=== PATIENT | male | born 1960 | race Caucasian/White ===

== ENCOUNTER 2024-03-12 10:17 | Emergency (ER) | payer OTHER, SELFPAY ==
[2024-03-12 10:20] VITALS: BP 136/87
--- NOTE | 2024-03-12 10:49 | ED.GENMED ---
History of Present Illness
General
Chief Complaint: Weakness
Time Seen by Provider: 03/12/24 10:32
History of Present Illness
History of Present Illness:
63-year-old male presents to the emergency department for evaluation of generalized weakness and fatigue beginning yesterday, symptoms of gradually worsening since that time. He reports general myalgias as well, no tactile fevers or night sweats.
Denies any URI symptoms, coughing, shortness of breath, or chest pain. States that he feels somewhat unsteady when walking. Denies any new medications. Has no known past medical history however does not seek routine medical care. Former smoker
quit 1 year ago. No recent nausea, vomiting, or diarrhea. No ill contacts. Denies any headaches or vision changes.
He admits to homelessness
Past History
Past History
ED Past Medical History: None
ED Past Surgical History: None
Social History
Employment: Employed
Review of Systems
Review of Systems
Allergies reviewed?: Yes
All Other Systems: ROS reviewed and negative except as documented in HPI and ROS
Phy Exam
Physical Exam
Physical Exam:
GEN: Well appearing, NAD, WDWN
HEENT: Oral mucosa moist, no scleral icterus, no nasal congestion
Cardiac: Regular rate and rhythm, no murmurs
Lung: No respiratory distress, no tachypnea, lungs clear to auscultation bilaterally
MSK: No gross deformity or injuries
Skin: Good color, no pallor or jaundice, no rashes
Neuro: AO x3; CN II-XII grossly intact. BUE strength 5/5 in all patrick, sensation intact and symmetric. BLE strength 5/5 in all patrick, sensation intact and symmetric. Gait is steady without ataxia or obvious deficit/weakness
Psych: Calm, cooperative
Course
Orders/Labs/Results
Orders:
Orders
03/12/24 10:46
Electrocardiogram (*1) Urgent
Reason for Study: QTc Monitoring
EKG- Treatment ONCE
03/12/24 10:58
COVID-19 Antigen Urgent
Source: Nasal Swab
Complete Blood Count/With Diff Urgent
Comprehensive Metabolic Panel Urgent
TSH Reflex To Free T4 Urgent
03/12/24 12:34
Urinalysis Reflex To Culture Urgent
Date Specimen was Collected: 03/12/24
Time Specimen was Collected: 12:27
Abnormal Lab Results
03/12/24
10:58
MCHC 32.7 L g/dL
(33.0-37.0)
MPV 11.0 H fL
(7.4-10.4)
BUN 24 H mg/dl
(9-20)
03/12/24 10:58
03/12/24 10:58
Vital Signs
Initial and Last Documented VS:
Initial Vital Signs
Temp Pulse Resp BP Pulse Ox
98.2 F 77 17 136/87 98
03/12/24 10:20 03/12/24 10:20 03/12/24 10:20 03/12/24 10:20 03/12/24 10:20
Last Documented Vital Signs
Temp Pulse Resp BP Pulse Ox
98.2 F 60 14 131/86 98
03/12/24 10:20 03/12/24 13:00 03/12/24 13:00 03/12/24 12:00 03/12/24 10:20
MDM/Problems Addressed
MDM/Problems Addressed:
Pt's workup is unrevealing of pathology. Suspect homelessness contributing factor to ED visit today. Pt given nutrition and hydration. D/C in stable condition
*Critical Care Note
Total Time (30-74mins, 75-104mins- exclusive of procedures): Not Applicable
ED Attending Note
-
Portions of this chart may have been created with voice recognition software.� Occasional wrong word or��sound alike� substitutions may have occurred due to the inherent limitations of voice recognition software.
Discharge Plan
Departure
Patient Disposition: Home (Routine Discharge)
Date of Disposition: 03/12/24
Time of Disposition: 13:22
Patient with high blood pressure during this ER visit?: No
Discharge Problem:
Fatigue, Homelessness
Instructions: Fatigue ED
Prescriptions:
No Action
No Current Medications
0
Referrals:
NONE,* [Family Provider] -
Interventions
Interventions:
*Risk Screen - Suicide Last Done: 03/12/24 10:26
*General Assessment Last Done: 03/12/24 10:26
*Neglect/Abuse Screening Last Done: 03/12/24 10:26
*Nursing Disposition Last Done: 03/12/24 13:31
ED- Cardiac Assessment Last Done: 03/12/24 11:06
ED- Neurological Assessment Last Done: 03/12/24 11:06
ED- Pulmonary Assessment Last Done: 03/12/24 11:06
Discharge Date and Time
Discharge Date/Time: 03/12/24 13:33
Print Language: ANDORRAN
[2024-03-12 10:58] VITALS: BP 145/89
[2024-03-12 11:03] VITALS: BP 141/82
[2024-03-12 11:19] LABS: % Basophils 0.4 % (0-2); % Eosinophils 1.5 % (0-6); % Immature Granulocytes 0.1 % (0-0.5); % Lymphocytes 24.2 % (20.5-51.1); % Monocytes 6.9 % (1.7-9.3); % Neutrophils 66.9 % (42.2-75.2); Absolute Eosinophils 0.1 10^3/uL (0-0.7); Absolute Lymphocytes 1.6 10^3/uL (1.2-3.4); Absolute Monocytes 0.5 10^3/uL (0.1-0.6); Absolute Neutrophils 4.5 10^3/uL (1.4-6.5); Hematocrit 44.4 % (39.0-52.0); Hemoglobin 14.5 g/dL (13.0-18.0); Mean Corp Hgb Conc. 32.7 g/dL (33.0-37.0); Mean Corpuscular Hgb 30.3 pg (27.0-31.0); Mean Corpuscular Volume 92.9 fL (80.0-94.0); Nucleated Red Blood Cells % 0 % (-); Platelet Count 205 10^3/uL (130-400); Red Blood Cell Count 4.78 10^6/uL (4.70-6.10); Red Cell Dist. Width 12.2 % (11.5-14.5); White Blood Cell Count 6.8 10^3/uL (4.8-10.8)
[2024-03-12 11:27] LABS: COVID-19 Antigen Negative (Negative)
[2024-03-12 11:31] LABS: ALT (SGPT) 23 U/L (0-50); AST (SGOT) 27 U/L (17-59); Albumin 4.3 g/dl (3.5-5.0); Alkaline Phosphatase 62 U/L (38-126); Blood Urea Nitrogen 24 mg/dl (9-20); Calcium 9.3 mg/dl (8.4-10.2); Carbon Dioxide 29 mmol/L (22-30); Chloride 102 mmol/L (98-107); Glucose 86 mg/dl (70-99); Potassium 4.2 mmol/L (3.5-5.1); Sodium 139 mmol/L (135-145); Total Bilirubin 0.4 mg/dl (0.2-1.3); Total Protein 6.8 g/dl (6.3-8.2); eGFR > 60.00
[2024-03-12 12:00] VITALS: BP 131/86
[2024-03-12 12:00] LABS: TSH Reflex To Free T4 0.67 uIU/ml (0.47-4.68)
[2024-03-12 12:56] LABS: Urine Albumin Negative (Neg - Trace); Urine Bilirubin Negative (Negative); Urine Character Very Cloudy (Clear); Urine Color Yellow; Urine Glucose Negative (Negative); Urine Ketone Negative (Negative); Urine Leukocyte Negative (Negative); Urine Nitrite Negative (Negative); Urine Occult Blood Negative (Negative); Urine Urobilinogen Negative (Neg - 1+)
== END 2024-03-12 13:33 | disposition home or self-care (01) ==
LOC: EMR 10:17
PROVIDERS: Physician Assistant; EMERGENCY PHYSICIAN Emergency Medicine
DX: R53.83 Other fatigue (principal); Z59.00 Homelessness unspecified; Z87.891 Personal history of nicotine dependence; Z11.52 Encounter for screening for COVID-19
CPT/HCPCS: 99284; 80053; 81003; 84443; 85025; 87811; 93005

== ENCOUNTER 2024-03-23 13:57 | Emergency (ER) | payer OTHER, SELFPAY ==
[2024-03-23 13:57] VITALS: BP 124/72
[2024-03-23 13:59] VITALS: BP 116/82
--- NOTE | 2024-03-23 14:18 | ED.GENMED ---
History of Present Illness
General
Chief Complaint: Cold/Flu/URI Symptoms
Source: patient
Exam Limitations: none
Time Seen by Provider: 03/23/24 14:18
Nursing documentation reviewed up to this point in time: agreed with
History of Present Illness
History of Present Illness:
63-year-old male with a past medical history of tobacco use disorder, social history of homelessness presenting to the emergency department today with concerns of nasal congestion, coughing, and generalized malaise. Patient reports that he was
riding [employer] buses recently and feels that he may have picked up an illness such as COVID or the flu. Patient reports that he tried a congestion medication from his friend yesterday which seemed to improve his symptoms a bit but they quickly
returned this morning. Patient also notes body aches and mild headaches. Patient notes some mild shortness of breath but no chest pain, abdominal pain, nausea, vomiting, dizziness, lightheadedness, fevers, or chills. Patient denies hemoptysis.
Past History
Past History
ED Past Medical History: None
ED Past Surgical History: None
Social History
Employment: Employed
Review of Systems
Review of Systems
All Other Systems: ROS reviewed and negative except as documented in HPI and ROS
Phy Exam
Physical Exam
Physical Exam:
General: Patient is well appearing and in no acute distress; non-toxic
Skin: Warm and dry, no rashes or lesions
Head: Normocephalic, atraumatic
Eyes: Sclera non-icteric. EOMs intact. PERRLA.
Mouth: No intraoral lesions, no pharyngeal erythema.
Cardiac: Regular rate and rhythm, no murmurs.
Peripheral Vascular: No lower extremity swelling or edema.
Pulm: Normal respiratory effort, equal breath sounds bilaterally, no wheezes, rales, or rhonchi
Neuro: CN II-XII intact, no focal neurologic deficits.
Psychiatric: Appropriate mood and affect.
Course
Orders/Labs/Results
Orders:
Orders
03/23/24 14:30
Ibuprofen [Motrin] 600 mg PO NOW STA
CR Chest - 2 Views Urgent
Comment:
Reason For Exam: shortness of breath
03/23/24 14:46
COVID-19 Antigen Urgent
Source: Nasal Swab
Complete Blood Count/With Diff Urgent
Comprehensive Metabolic Panel Urgent
Influenza A+B Rapid Molecular Urgent
KEVIN Source: Nasal Swab
Specimen Description:
Abnormal Lab Results
03/23/24
14:46
RBC 4.57 L 10^6/uL
(4.70-6.10)
MCH 31.7 H pg
(27.0-31.0)
MPV 10.7 H fL
(7.4-10.4)
Absolute Lymphs (auto) 1.1 L 10^3/uL
(1.2-3.4)
Neutrophils % 78.5 H %
(42.2-75.2)
Lymphocytes % 13.8 L %
(20.5-51.1)
Glucose 101 H mg/dl
(70-99)
03/23/24 14:46
03/23/24 14:46
Vital Signs
Initial and Last Documented VS:
Initial Vital Signs
Pulse Resp BP Pulse Ox
83 20 124/72 98
03/23/24 13:57 03/23/24 13:57 03/23/24 13:57 03/23/24 13:57
Last Documented Vital Signs
Temp Pulse Resp BP Pulse Ox
98.2 F 83 20 124/72 98
03/23/24 13:59 03/23/24 16:09 03/23/24 16:09 03/23/24 16:09 03/23/24 16:09
MDM/Problems Addressed
Differential Diagnosis Includes:
ddx include upper respiratory tract infection, sinusitis, allergic rhinitis, pneumonia
MDM/Problems Addressed:
Nasal congestion, body aches:
63-year-old male with a past medical history of tobacco use disorder, social history of homelessness presenting to the emergency department today with concerns of nasal congestion, coughing, and generalized malaise. Patient states that he is
regarding the past as recently as concerned he may have picked up a respiratory illness such as COVID. Emergency department, he is well-appearing but does appear fatigued. His vitals are stable, he is afebrile. His CBC and CMP is unremarkable.
His COVID and flu testing is negative. His x-ray shows no evidence of pneumothorax or pneumonia. Patient's likely suffering from a viral syndrome, I discussed [id number] medications with patient to help with symptom control. Patient states
that he will try this and he is in agreement with plan. Patient stable for discharge.
Chronic conditions affecting care:
n/a
Acute Exacerbation and/or Progression of Chronic Illness:
n/a
*Radiology
Radiology exam reviewed: preliminary read by ED provider (no acute cardiopulmonary abnormality )
*Pulse Oximetry
Patient hypoxic: no
*Critical Care Note
Total Time (30-74mins, 75-104mins- exclusive of procedures): Not Applicable
Data Reviewed
Review of Other/Old Records Reveals: Records (Reviewed ER physician documentation from 03/12/2024 patient was seen for similar symptoms, reviewed your physician-patient from 09/25/23)
Source: patient and records
Patient Management
Social determinants of health affecting care: Living situation and Poor outpatient follow-up
Escalation/DeEscalation of care consider admission/obs:
Reviewed case with my attending Dr. Valentin. Patient stable for discharge.
ED Attending Note
-
Portions of this chart may have been created with voice recognition software.� Occasional wrong word or��sound alike� substitutions may have occurred due to the inherent limitations of voice recognition software.
Discharge Plan
Departure
Patient Disposition: Home (Routine Discharge)
Date of Disposition: 03/23/24
Time of Disposition: 15:52
Patient with high blood pressure during this ER visit?: Yes
Condition: Good
Discharge Problem:
Viral syndrome, Head congestion
Instructions: Viral Upper Respiratory Infection, Adult (DC), Viral Syndrome (DC)
Prescriptions:
No Action
No Current Medications
0
Referrals:
NONE,* [Family Provider] -
Activity Restrictions/Additional Instructions:
You can black pickler Sudafed [id number] to help with your symptoms. You can take one immediate release 60 mg tablet every 4-6 hours as needed.
Please return to the emergency department should you develop chest pain, abdominal pain, palpitations, an acute worsening of your symptoms, dizziness, lightheadedness, fainting spells, or any other signs or symptoms concerning to you.
Interventions
Interventions:
*Risk Screen - Suicide Last Done: 03/23/24 13:59
*General Assessment Last Done: 03/23/24 13:59
*Neglect/Abuse Screening Last Done: 03/23/24 13:59
*Nursing Disposition Last Done: 03/23/24 16:09
ED- Pulmonary Assessment Last Done: 03/23/24 14:50
Discharge Date and Time
Discharge Date/Time: 03/23/24 16:10
Print Language: CITIZEN OF [place]
[2024-03-23] MEDS: MOTRIN 600 MG PO (14:38)
[2024-03-23 14:59] LABS: % Basophils 0.5 % (0-2); % Immature Granulocytes 0.4 % (0-0.5); % Lymphocytes 13.8 % (20.5-51.1); % Monocytes 5.8 % (1.7-9.3); % Neutrophils 78.5 % (42.2-75.2); Absolute Eosinophils 0.1 10^3/uL (0-0.7); Absolute Lymphocytes 1.1 10^3/uL (1.2-3.4); Absolute Monocytes 0.5 10^3/uL (0.1-0.6); Absolute Neutrophils 6.1 10^3/uL (1.4-6.5); Hematocrit 41.5 % (39.0-52.0); Hemoglobin 14.5 g/dL (13.0-18.0); Mean Corp Hgb Conc. 34.9 g/dL (33.0-37.0); Mean Corpuscular Hgb 31.7 pg (27.0-31.0); Mean Corpuscular Volume 90.8 fL (80.0-94.0); Mean Platelet Volume 10.7 fL (7.4-10.4); Nucleated Red Blood Cells % 0 % (-); Platelet Count 180 10^3/uL (130-400); Red Blood Cell Count 4.57 10^6/uL (4.70-6.10); Red Cell Dist. Width 12.7 % (11.5-14.5); White Blood Cell Count 7.7 10^3/uL (4.8-10.8)
[2024-03-23 15:05] LABS: ALT (SGPT) 17 U/L (0-50); AST (SGOT) 22 U/L (17-59); Albumin 4.1 g/dl (3.5-5.0); Alkaline Phosphatase 60 U/L (38-126); Blood Urea Nitrogen 13 mg/dl (9-20); Calcium 8.7 mg/dl (8.4-10.2); Carbon Dioxide 29 mmol/L (22-30); Chloride 101 mmol/L (98-107); Glucose 101 mg/dl (70-99); Potassium 4.5 mmol/L (3.5-5.1); Sodium 136 mmol/L (135-145); Total Bilirubin 0.7 mg/dl (0.2-1.3); Total Protein 6.7 g/dl (6.3-8.2); eGFR > 60.00
[2024-03-23 15:10] LABS: COVID-19 Antigen Negative (Negative)
[2024-03-23 16:09] VITALS: BP 124/72
== END 2024-03-23 16:10 | disposition home or self-care (01) ==
LOC: EMR 13:57
PROVIDERS: Physician Assistant; EMERGENCY PHYSICIAN Emergency Medicine
DX: B34.9 Viral infection, unspecified (principal); R09.81 Nasal congestion; Z87.891 Personal history of nicotine dependence
CPT/HCPCS: 99283; 71046; 80053; 85025; 87502; 87811

== ENCOUNTER 2024-04-20 11:10 | Emergency (ER) | payer OTHER, SELFPAY ==
[2024-04-20 11:15] VITALS: BP 120/82
[2024-04-20 11:32] LABS: % Basophils 0.8 % (0-2); % Immature Granulocytes 0.4 % (0-0.5); % Lymphocytes 29.2 % (20.5-51.1); % Monocytes 8.3 % (1.7-9.3); % Neutrophils 59.3 % (42.2-75.2); Absolute Basophils 0.1 10^3/uL (0-0.2); Absolute Eosinophils 0.1 10^3/uL (0-0.7); Absolute Lymphocytes 2.1 10^3/uL (1.2-3.4); Absolute Monocytes 0.6 10^3/uL (0.1-0.6); Absolute Neutrophils 4.2 10^3/uL (1.4-6.5); Hematocrit 44.5 % (39.0-52.0); Hemoglobin 15.5 g/dL (13.0-18.0); Mean Corp Hgb Conc. 34.8 g/dL (33.0-37.0); Mean Corpuscular Hgb 31.7 pg (27.0-31.0); Mean Platelet Volume 10.8 fL (7.4-10.4); Nucleated Red Blood Cells % 0 % (-); Platelet Count 204 10^3/uL (130-400); Red Blood Cell Count 4.89 10^6/uL (4.70-6.10); Red Cell Dist. Width 12.5 % (11.5-14.5); White Blood Cell Count 7.1 10^3/uL (4.8-10.8)
--- NOTE | 2024-04-20 11:43 | ED.SKININJ ---
HPI-Injury
<Marguerite Castañeda MD, Resident - Last Filed: 04/20/24 12:54>
General
Chief Complaint: Bite
Time Seen by Provider: 04/20/24 11:41
History of Present Illness-Injury
Initial Injury comments:
63 year old male presented to ER today complaining from back/hip pain. He reported he was bitten by a tick about on week ago and started to have more pain on his back. He denied having fever, chills since he was bitten. He denied trauma to his
back/ hip area. He reported that he was treated for Lyme disease for 5-6 times and his last treatment was about 3 years ago. He showed `0.5 crust on his left gluteal area and reported he was bitten from here. There was no signs of infection on this
area ( no redness, no swelling).
PMH: None
PSH: None
Past History
<Marguerite Castañeda MD, Resident - Last Filed: 04/20/24 12:54>
Past History
ED Past Medical History: None
ED Past Surgical History: None
Social History
Employment: Employed
Skin Exam
<Marguerite Castañeda MD, Resident - Last Filed: 04/20/24 12:54>
Bite
Left Superior Posterior Lateral Buttock:
Skin has: other (~0.5 cm crust , intact, no redness )
Description of tick: unknown (tick size unkown )
Surrounding area around bite has: no evidence of erythema
Phy Exam
<Marguerite Castañeda MD, Resident - Last Filed: 04/20/24 12:54>
General Physical Exam
General Presentation: well appearing
General age: appears stated age
General Skin: warm
Pulmonary Exam
Pulmonary Exam: lungs clear and no respiratory distress
Neurological Exam
Neurological Exam: alert, oriented x3 and no motor deficits
Musculoskeletal Exam
Musculoskeletal Exam: full ROM
Course
<Marguerite Castañeda MD, Resident - Last Filed: 04/20/24 12:54>
Orders/Labs/Results
Orders:
Orders
04/20/24 11:21
Complete Blood Count/With Diff Urgent
Comprehensive Metabolic Panel Urgent
Lyme Progressive Urgent
04/20/24 12:11
Acetaminophen [Tylenol] 650 mg PO NOW STA
04/20/24 12:12
Acetaminophen [Tylenol] 650 mg .ROUTE .STK-MED ONE
Abnormal Lab Results
04/20/24
11:21
MCH 31.7 H pg
(27.0-31.0)
MPV 10.8 H fL
(7.4-10.4)
BUN 21 H mg/dl
(9-20)
Glucose 108 H mg/dl
(70-99)
04/20/24 11:21
04/20/24 11:21
Vital Signs
Initial and Last Documented VS:
Initial Vital Signs
Temp Pulse Resp BP Pulse Ox
97.9 F 112 18 120/82 97
04/20/24 11:15 04/20/24 11:15 04/20/24 11:15 04/20/24 11:15 04/20/24 11:15
Last Documented Vital Signs
Temp Pulse Resp BP Pulse Ox
97.9 F 112 18 120/82 97
04/20/24 11:15 04/20/24 11:15 04/20/24 11:15 04/20/24 11:15 04/20/24 11:15
<Rob Hutchinson, DO - Last Filed: 04/20/24 13:15>
Orders/Labs/Results
Orders:
Orders
04/20/24 11:21
Complete Blood Count/With Diff Urgent
Comprehensive Metabolic Panel Urgent
Lyme Progressive Urgent
04/20/24 12:11
Acetaminophen [Tylenol] 650 mg PO NOW STA
04/20/24 12:12
Acetaminophen [Tylenol] 650 mg .ROUTE .STK-MED ONE
Abnormal Lab Results
04/20/24
11:21
MCH 31.7 H pg
(27.0-31.0)
MPV 10.8 H fL
(7.4-10.4)
BUN 21 H mg/dl
(9-20)
Glucose 108 H mg/dl
(70-99)
04/20/24 11:21
04/20/24 11:21
Vital Signs
Initial and Last Documented VS:
Initial Vital Signs
Temp Pulse Resp BP Pulse Ox
97.9 F 112 18 120/82 97
04/20/24 11:15 04/20/24 11:15 04/20/24 11:15 04/20/24 11:15 04/20/24 11:15
Last Documented Vital Signs
Temp Pulse Resp BP Pulse Ox
97.9 F 112 18 120/82 97
04/20/24 11:15 04/20/24 11:15 04/20/24 11:15 04/20/24 11:15 04/20/24 11:15
<Marguerite Castañeda MD, Resident - Last Filed: 04/20/24 12:54>
MDM/Problems Addressed
Differential Diagnosis Includes:
Lyme, insect bite infection, cellulitis, lymphangitis
MDM/Problems Addressed:
CBC, CMP and Lyme screening ( IgG and IgM ) was ordered. CBC and CMP did not show any abnormality. Lyme screening will be resulted tomorrow and patient will call the hospital for the results.
<Rob Hutchinson, DO - Last Filed: 04/20/24 13:15>
*Pulse Oximetry
Patient hypoxic: no
*Critical Care Note
Total Time (30-74mins, 75-104mins- exclusive of procedures): Not Applicable
Data Reviewed
Prescriptions/Medications Considered But Not Given:
Doxycycline not indicated, do not suspect Lyme
<Rob Hutchinson, - Last Filed: 04/20/24 13:15>
Patient Management
Social determinants of health affecting care: Living situation (homeless)
Escalation/DeEscalation of care consider admission/obs:
admit not indicated
ED Attending Note
<Marguerite Castañeda MD, Resident - Last Filed: 04/20/24 12:54>
-
Portions of this chart may have been created with voice recognition software.� Occasional wrong word or��sound alike� substitutions may have occurred due to the inherent limitations of voice recognition software.
<Rob Hutchinson, - Last Filed: 04/20/24 13:15>
ED Attending Note
Patient seen and examined by attending physician: Yes
I performed a history and physical exam of patient and discussed management with resident, I reviewed resident's note and agree with documented findings and plan of care.: Yes
ED Attending Note:
I have reviewed and agree with history and treatment plan by Dr. Marguerite Castañeda. My exam reveals 63-year-old male in no acute distress, with possible insect bite versus abrasion above left buttocks. No erythema migrans. Doubt Lyme. Lyme test
ordered. Stable for discharge.
Discharge Plan
Departure
Patient Disposition: Home (Routine Discharge)
Date of Disposition: 04/20/24
Time of Disposition: 12:55
Patient with high blood pressure during this ER visit?: No
Condition: Good
Discharge Problem:
Insect bite
Instructions: Insect Bites and Stings (DC)
Prescriptions:
No Action
No Current Medications
0
Referrals:
NONE,* [Family Provider] -
Activity Restrictions/Additional Instructions:
You were seen in the emergency department after a tick bite. No laboratory or examination findings for acute infection. Lyme serology will be resulted tomorrow. Please reach out to the hospital for the results. Return to the emergency department
for any worsening pain, fever greater than 100.4 or any additional symptoms that are concerning to you.
Interventions
Interventions:
*Risk Screen - Suicide Last Done: 04/20/24 12:04
*General Assessment Last Done: 04/20/24 12:04
*Neglect/Abuse Screening Last Done: 04/20/24 12:04
ED- Fall Risk Assessment Last Done: 04/20/24 12:04
*ED COVID-19 Vaccine History Last Done: 04/20/24 12:04
ED-Skin Assessment Last Done: 04/20/24 12:04
Discharge Date and Time
Print Language: PERSIAN
[2024-04-20 11:52] LABS: ALT (SGPT) 38 U/L (0-50); AST (SGOT) 43 U/L (17-59); Albumin 4.7 g/dl (3.5-5.0); Alkaline Phosphatase 66 U/L (38-126); Blood Urea Nitrogen 21 mg/dl (9-20); Calcium 9.7 mg/dl (8.4-10.2); Carbon Dioxide 30 mmol/L (22-30); Chloride 104 mmol/L (98-107); Glucose 108 mg/dl (70-99); Potassium 4.6 mmol/L (3.5-5.1); Sodium 141 mmol/L (135-145); Total Bilirubin 0.4 mg/dl (0.2-1.3); Total Protein 7.3 g/dl (6.3-8.2); eGFR > 60.00
[2024-04-20] MEDS: TYLENOL 650 MG PO (12:13)
[2024-04-22 14:36] LABS: Lyme Antibody Screen, EIA Presump. Positive (Negative)
[2024-04-25 07:51] LABS: Lyme Ab Western Blot IgG Positive (Negative); Lyme Ab Western Blot IgM Negative (Negative)
== END 2024-04-20 13:19 | disposition home or self-care (01) ==
LOC: EMR 11:10
PROVIDERS: EMERGENCY PHYSICIAN Emergency Medicine
DX: M54.9 Dorsalgia, unspecified (principal); M25.559 Pain in unspecified hip; W57.XXXA Bitten or stung by nonvenomous insect and other nonvenomous arthropods, initial encounter; Z59.00 Homelessness unspecified
CPT/HCPCS: 99283; 80053; 85025; 86617; 86618

== ENCOUNTER 2024-05-19 10:50 | Emergency (ER) | payer OTHER, SELFPAY ==
[2024-05-19 10:57] VITALS: BP 133/89
[2024-05-19] MEDS: VIBRAMYCIN 100 MG PO (11:51)
--- NOTE | 2024-05-19 12:12 | ED.GENMED ---
History of Present Illness
General
Chief Complaint: Extremity Pain (non-traumatic)
Source: patient
Exam Limitations: none
Time Seen by Provider: 05/19/24 11:36
Nursing documentation reviewed up to this point in time: agreed with
History of Present Illness
History of Present Illness:
64-year-old male previous history of TBI presenting to the emergency department today with concerns of a tick bite on his back. Claims this occurred few weeks ago was seen in the ER had Lyme testing was apparently called to get treated but did not
follow-up. He is now coming back in for potential Lyme treatment. Denies additional concerns other than some mild pain to his left heel.
Past History
Past History
ED Past Medical History: None
ED Past Surgical History: None
Social History
Employment: Employed
Review of Systems
Review of Systems
Allergies reviewed?: Yes
All Other Systems: ROS reviewed and negative except as documented in HPI and ROS
Phy Exam
Physical Exam
Physical Exam:
GENERAL: Alert , in no apparent distress
EYE: pupils equal and reactive
NECK: Supple, no significant adenopathy.
ENT: o/p clr, mmm.
CARDIAC: Regular rate and rhythm .
LUNGS: Clear breath sounds bilaterally, no acute respiratory distress, no wheezes/rales/rhonchi
ABDOMEN: Soft, without focal tenderness, no r/g, no cvat
NEUROLOGICAL: Alert and oriented, no focal neuro deficits
SKIN: Warm and dry, skin intact.
MUSCULOSKELETAL: No edema, well perfused.
PSYCH: Normal and appropriate interaction.
Course
Orders/Labs/Results
Orders:
Orders
05/19/24 11:48
Doxycycline [Vibramycin] 100 mg PO NOW STA
Vital Signs
Initial and Last Documented VS:
Initial Vital Signs
Temp Pulse Resp BP Pulse Ox
98.1 F 92 16 133/89 99
05/19/24 10:57 05/19/24 10:57 05/19/24 10:57 05/19/24 10:57 05/19/24 10:57
Last Documented Vital Signs
Temp Pulse Resp BP Pulse Ox
98.1 F 92 16 133/89 99
05/19/24 10:57 05/19/24 10:57 05/19/24 10:57 05/19/24 10:57 05/19/24 10:57
MDM/Problems Addressed
MDM/Problems Addressed:
64-year-old male presenting to the emergency department today with concerns of potential positive Lyme test ago. Here patient in no distress claims it is some mild heel pain but no visible abnormalities to the heel. Walking with steady gait. Plan
for treatment of potential Lyme disease concerning previous positive test. Stable for outpatient management. Return precautions given.
*Critical Care Note
Total Time (30-74mins, 75-104mins- exclusive of procedures): Not Applicable
ED Attending Note
-
Portions of this chart may have been created with voice recognition software.� Occasional wrong word or��sound alike� substitutions may have occurred due to the inherent limitations of voice recognition software.
Discharge Plan
Departure
Patient Disposition: Home (Routine Discharge)
Date of Disposition: 05/19/24
Time of Disposition: 12:12
Patient with high blood pressure during this ER visit?: No
Condition: Good
Covid-19: Not Applicable
Discharge Problem:
Acute Lyme disease
Instructions: Lyme Disease (DC)
Prescriptions:
New
doxycycline hyclate 100 mg tablet
100 mg PO BID 10 Days Qty: 20 0RF
Referrals:
NONE,* [Family Provider] -
Activity Restrictions/Additional Instructions:
You came to the emergency department today with concerns potential positive Lyme test. Please take the doxycycline twice daily for the next 10 days and follow-up closely with the primary care doctor. Return to the emergency department any
worsening, new or concerning symptoms.
Interventions
Interventions:
*Risk Screen - Suicide Last Done: 05/19/24 10:57
ED-Skin Assessment Last Done: 05/19/24 11:44
ED-Peripheral Vascular Assessment Last Done: 05/19/24 11:54
ED-Musculoskeletal Assessment Last Done: 05/19/24 11:44
Discharge Date and Time
Print Language: TURKISH
== END 2024-05-19 12:25 | disposition home or self-care (01) ==
LOC: EMR 10:50
PROVIDERS: EMERGENCY PHYSICIAN Student in an Organized Health Care Education/Training Program
DX: A69.20 Lyme disease, unspecified (principal); Z87.820 Personal history of traumatic brain injury
CPT/HCPCS: 99282

== ENCOUNTER 2024-06-04 16:38 | Emergency (ER) | payer OTHER, SELFPAY ==
[2024-06-04 16:40] VITALS: BP 132/90
--- NOTE | 2024-06-04 18:36 | ED.GENMED ---
History of Present Illness
General
Chief Complaint: Weakness
Time Seen by Provider: 06/04/24 18:18
History of Present Illness
History of Present Illness:
Patient is a 64-year-old gentleman who is currently homeless who presents to the emergency department with fatigue, body aches. Was recently treated for Lyme disease with 10-day course of doxycycline. States he was unsure if the pharmacy felt the
proper prescription as the pill looked different than the 1 in the emergency department. Denies any rash. Denies fever. States he has not been sleeping well though does note that he has been sleeping in a [place]
Past History
Past History
ED Past Medical History: None
ED Past Surgical History: None
Social History
Employment: Employed
Phy Exam
Physical Exam
Physical Exam:
GENERAL APPEARANCE: NAD, well developed/ well nourished, disheveled
EYES lids/conjunctiva normal
EARS/NOSE/THROAT Mucous membranes moist
HEAD/NECK normocephalic atraumatic, neck is supple. No meningismus
RESPIRATORY respiratory effort normal, speaks in full sentences, no accessory muscle use. Lungs clear to auscultation without rhonchi, wheezes, rales
CARDIAC Regular rate and rhythm, no edema.
ABDOMINAL Soft, ND/NT.
MUSCLES/EXTREMITIES No abnormal range of motion, no swelling.
SKIN Warm, pink and dry. No rashes
NEUROLOGICAL Speech is clear and appropriate. Normal level of consciousness. 5/5 strength in all extremities.
PSYCH Normal mood and affect. Judgement/competence is appropriate
Course
Orders/Labs/Results
Orders:
Orders
06/04/24 18:36
Acetaminophen [Tylenol] 1,000 mg PO NOW STA
06/04/24 18:46
Complete Blood Count/With Diff Urgent
Comprehensive Metabolic Panel Urgent
Abnormal Lab Results
06/04/24
18:46
RBC 4.36 L 10^6/uL
(4.70-6.10)
MCH 32.6 H pg
(27.0-31.0)
BUN 29 H mg/dl
(9-20)
06/04/24 18:46
06/04/24 18:46
Vital Signs
Initial and Last Documented VS:
Initial Vital Signs
Temp Pulse Resp BP Pulse Ox
97.9 F 85 18 132/90 97
06/04/24 16:40 06/04/24 16:40 06/04/24 16:40 06/04/24 16:40 06/04/24 16:40
Last Documented Vital Signs
Temp Pulse Resp BP Pulse Ox
97.9 F 52 16 137/92 99
06/04/24 16:40 06/04/24 19:00 06/04/24 19:00 06/04/24 19:00 06/04/24 19:00
*Critical Care Note
Total Time (30-74mins, 75-104mins- exclusive of procedures): Not Applicable
ED Attending Note
ED Attending Note
ED Attending Note:
Patient presents with nonspecific symptoms such as fatigue, body aches, poor sleep. Suspect some of this is environmental related as patient is currently homeless and it is raining outside. Given his recent infection, will check his blood work and
provide with Tylenol
-
Portions of this chart may have been created with voice recognition software.� Occasional wrong word or��sound alike� substitutions may have occurred due to the inherent limitations of voice recognition software.
Discharge Plan
Departure
Patient Disposition: Home (Routine Discharge)
Date of Disposition: 06/04/24
Time of Disposition: 19:33
Patient with high blood pressure during this ER visit?: No
Discharge Problem:
Fatigue
Prescriptions:
No Action
doxycycline hyclate 100 mg tablet
100 mg PO BID 10 Days Qty: 20 0RF
Referrals:
NONE,* [Family Provider] -
Activity Restrictions/Additional Instructions:
please follow up with your primary doctor for recheck in the next week
return to ER if worse
Interventions
Interventions:
*Risk Screen - Suicide Last Done: 06/04/24 19:00
*General Assessment Last Done: 06/04/24 19:00
*Neglect/Abuse Screening Last Done: 06/04/24 19:00
*ED COVID-19 Vaccine History Last Done: 06/04/24 19:00
ED- Cardiac Assessment Last Done: 06/04/24 19:00
ED- Neurological Assessment Last Done: 06/04/24 19:00
ED- Pulmonary Assessment Last Done: 06/04/24 19:00
Discharge Date and Time
Print Language: J[place]
[2024-06-04] MEDS: TYLENOL 1000 MG PO (18:42)
[2024-06-04 18:54] LABS: % Basophils 0.5 % (0-2); % Eosinophils 1.4 % (0-6); % Monocytes 8.7 % (1.7-9.3); % Neutrophils 56.4 % (42.2-75.2); Absolute Eosinophils 0.1 10^3/uL (0-0.7); Absolute Lymphocytes 1.9 10^3/uL (1.2-3.4); Absolute Monocytes 0.5 10^3/uL (0.1-0.6); Absolute Neutrophils 3.3 10^3/uL (1.4-6.5); Hematocrit 40.3 % (39.0-52.0); Hemoglobin 14.2 g/dL (13.0-18.0); Mean Corp Hgb Conc. 35.2 g/dL (33.0-37.0); Mean Corpuscular Hgb 32.6 pg (27.0-31.0); Mean Corpuscular Volume 92.4 fL (80.0-94.0); Mean Platelet Volume 10.4 fL (7.4-10.4); Nucleated Red Blood Cells % 0 % (-); Platelet Count 217 10^3/uL (130-400); Red Blood Cell Count 4.36 10^6/uL (4.70-6.10); Red Cell Dist. Width 13.1 % (11.5-14.5); White Blood Cell Count 5.8 10^3/uL (4.8-10.8)
[2024-06-04 19:00] VITALS: BP 137/92; BMI 27.5
[2024-06-04 19:14] LABS: ALT (SGPT) 19 U/L (0-50); AST (SGOT) 24 U/L (17-59); Albumin 4.5 g/dl (3.5-5.0); Alkaline Phosphatase 61 U/L (38-126); Blood Urea Nitrogen 29 mg/dl (9-20); Calcium 9.4 mg/dl (8.4-10.2); Carbon Dioxide 26 mmol/L (22-30); Chloride 105 mmol/L (98-107); Estimated Creatinine Clearance 93 ml/min; Glucose 84 mg/dl (70-99); Potassium 4.5 mmol/L (3.5-5.1); Sodium 140 mmol/L (135-145); Total Bilirubin 0.2 mg/dl (0.2-1.3); Total Protein 6.9 g/dl (6.3-8.2); eGFR > 60.00
== END 2024-06-04 19:42 | disposition home or self-care (01) ==
LOC: EMR 16:38
PROVIDERS: EMERGENCY PHYSICIAN Emergency Medicine
DX: R53.83 Other fatigue (principal); Z59.00 Homelessness unspecified
CPT/HCPCS: 99283; 80053; 85025

== ENCOUNTER 2024-07-21 09:05 | Emergency (ER) | payer OTHER, SELFPAY ==
[2024-07-21 09:21] VITALS: BP 150/109
[2024-07-21 09:56] VITALS: BMI 24.9
[2024-07-21] MEDS: TYLENOL 1000 MG PO (09:58)
[2024-07-21 10:00] VITALS: BP 132/92
--- NOTE | 2024-07-21 10:00 | ED.GENMED ---
History of Present Illness
<Kaela Bedolla PA-C - Last Filed: 07/21/24 17:25>
General
Chief Complaint: Cold/Flu/URI Symptoms
Source: patient
Exam Limitations: none
Time Seen by Provider: 07/21/24 09:38
Nursing documentation reviewed up to this point in time: agreed with
History of Present Illness
History of Present Illness:
Patient is a 64-year-old male who is currently homeless presenting to the emergency department for evaluation of nasal congestion and bodyaches. Patient states symptoms started on Friday, 2 days ago, and have been progressively worsening. He
reports significant nasal congestion, body aches, mild sore throat, and dry cough. Patient denies any chest pain or shortness of breath. Patient denies any difficulty swallowing. Patient denies any headache or fever. No new rash. No urinary
symptoms or changes in bowel habits.
Patient states that he is currently living in an abandoned garage. He does have access to food and water.
Past History
<Kaela Bedolla PA-C - Last Filed: 07/21/24 17:25>
Past History
ED Past Medical History: None
ED Past Surgical History: None
Social History
Employment: Employed
Review of Systems
<Kaela Bedolla PA-C - Last Filed: 07/21/24 17:25>
Review of Systems
Allergies reviewed?: Yes
All Other Systems: ROS reviewed and negative except as documented in HPI and ROS
Phy Exam
<Kaela Bedolla PA-C - Last Filed: 07/21/24 17:25>
Physical Exam
Physical Exam:
Vitals: Patient's vital signs are stable. Afebrile
General: Patient is in no apparent distress
Skin: Warm and dry, no rashes or lesions
Head: Normocephalic, atraumatic
Eyes: Sclera nonicteric. EOMs intact. No nystagmus.
Throat: Posterior pharynx mildly erythematous without any tonsillar edema or exudates. Uvula midline. Protecting airway
Neck: Normal ROM, no cervical spine tenderness, no meningismus
Cardiac: Regular rate and rhythm, no murmurs.
Pulm: Normal respiratory effort, lungs clear with no wheezes, rales, rhonchi heard on exam.
Abdomen: Abdomen soft. No abdominal tenderness.
Extremities: No evidence of cyanosis or edema. Palpable distal pulses bilateral upper and lower extremities.
Neuro: AAOx3. CN II-XII intact. No focal neurologic deficits.
Psychiatric: Normal affect.
Course
<Kaela Bedolla PA-C - Last Filed: 07/21/24 17:25>
Orders/Labs/Results
Orders:
Orders
07/21/24 09:49
COVID-19 Antigen Urgent
Source: Nasal Swab
Influenza A+B Rapid Molecular Urgent
KEVIN Source: Nasal Swab
Specimen Description:
07/21/24 09:56
Acetaminophen [Tylenol] 1,000 mg .ROUTE .STK-MED ONE
07/21/24 09:57
Acetaminophen [Tylenol] 1,000 mg PO NOW STA
07/21/24 10:45
Case Management Consult ONCE
Case Management Consult: Discharge Planning
07/21/24 10:57
Guaifenesin [Mucinex] 600 mg PO NOW STA
Ketorolac [Toradol] 30 mg IM NOW STA
07/21/24 12:06
Ibuprofen [Motrin] 800 mg PO NOW STA
Vital Signs
Initial and Last Documented VS:
Initial Vital Signs
Temp Pulse Resp BP Pulse Ox
99.1 F 95 18 150/109 99
07/21/24 09:21 07/21/24 09:21 07/21/24 09:21 07/21/24 09:21 07/21/24 09:21
Last Documented Vital Signs
Temp Pulse Resp BP Pulse Ox
99.1 F 72 16 124/79 94
07/21/24 09:21 07/21/24 10:00 07/21/24 10:00 07/21/24 12:00 07/21/24 12:30
<Carlos Stewart MD - Last Filed: 07/21/24 12:09>
Orders/Labs/Results
Orders:
Orders
07/21/24 09:49
COVID-19 Antigen Urgent
Source: Nasal Swab
Influenza A+B Rapid Molecular Urgent
KEVIN Source: Nasal Swab
Specimen Description:
07/21/24 09:56
Acetaminophen [Tylenol] 1,000 mg .ROUTE .STK-MED ONE
07/21/24 09:57
Acetaminophen [Tylenol] 1,000 mg PO NOW STA
07/21/24 10:45
Case Management Consult ONCE
Case Management Consult: Discharge Planning
07/21/24 10:57
Guaifenesin [Mucinex] 600 mg PO NOW STA
Ketorolac [Toradol] 30 mg IM NOW STA
07/21/24 12:06
Ibuprofen [Motrin] 800 mg PO NOW STA
Vital Signs
Initial and Last Documented VS:
Initial Vital Signs
Temp Pulse Resp BP Pulse Ox
99.1 F 95 18 150/109 99
07/21/24 09:21 07/21/24 09:21 07/21/24 09:21 07/21/24 09:21 07/21/24 09:21
Last Documented Vital Signs
Temp Pulse Resp BP Pulse Ox
99.1 F 72 16 124/79 94
07/21/24 09:21 07/21/24 10:00 07/21/24 10:00 07/21/24 12:00 07/21/24 12:30
<Kaela Bedolla PA-C - Last Filed: 07/21/24 17:25>
MDM/Problems Addressed
Differential Diagnosis Includes:
Not limited to: URI, viral illness including COVID, flu, etc., bronchitis, allergic rhinitis, etc.
MDM/Problems Addressed:
64-year-old male presenting with viral URI symptoms. No fever or chills. No dysphagia. No productive cough, chest pain, or shortness of breath. Patient hypertensive on arrival, otherwise vital signs stable. Patient is not hypoxic. Patient is
afebrile. Physical exam as above. Patient well-appearing, in no apparent distress. Conversational and nontoxic-appearing. Heart regular rate and rhythm. Lungs are clear bilaterally on auscultation. Tonsillar edema or exudates. Do not suspect
bacterial pharyngitis. No [employer]. Do not suspect pneumonia given patient is afebrile with no productive cough and has clear lung sounds. Suspect likely viral syndrome. Will check COVID/influenza swabs. Will give Tylenol. Will monitor closely
reassess.
Chronic conditions affecting care:
N/A
Acute Exacerbation and/or Progression of Chronic Illness:
N/A
<Kaela Bedolla PA-C - Last Filed: 07/21/24 17:25>
*Pulse Oximetry
Patient hypoxic: no
*EKG
Interpreted by ED Provider?: NA
*Sap Bw Consultant Interpretation
Rate: Sap Bw Consultant- N/A
*Critical Care Note
Total Time (30-74mins, 75-104mins- exclusive of procedures): Not Applicable
<Kaela Bedolla PA-C - Last Filed: 07/21/24 17:25>
Patient Management
Social determinants of health affecting care: Living situation and Financial situation
Discussion with other providers: Other (Case management)
<Kaela Bedolla PA-C - Last Filed: 07/21/24 17:25>
Update Note
Update Note:
Update: Viral swab negative. Suspect other viral upper respiratory tract infection. No indication for imaging or lab work at this time. Patient was given symptomatic treatment with Tylenol, Toradol, Mucinex emergency department. Given
homelessness�did consult case management who was able to get patient a 1 night stay in a hotel. Patient stable for discharge. An Uber was provided to transport patient to hotel. Return precautions discussed with patient. Patient stable for
discharge.
ED Attending Note
<Kaela Bedolla PA-C - Last Filed: 07/21/24 17:25>
-
Portions of this chart may have been created with voice recognition software.� Occasional wrong word or��sound alike� substitutions may have occurred due to the inherent limitations of voice recognition software.
<Carlos Stewart MD - Last Filed: 07/21/24 12:09>
ED Attending Note
Patient seen and examined by attending physician: Yes
ED Attending Note:
I have seen and evaluated the patient with a [id number] encounter. I have spoken to the advance practicer provider and involved in the medical history, the physical exam, medical decision making.
Evaluation and management service: agree unless noted differently below.
Results interpretation: agree unless noted differently below.
Focused HPI: 64-year-old male with no significant chronic medical issues presents to the emergency room for evaluation of flulike illness. Patient reports onset of symptoms 2 days ago and they have been constant since that time. He reports
myalgias and arthralgias. He says that he has had cough, congestion, sore throat. He says that symptoms did not seem to be improving so he came to the ER for assessment. He denies any chest pain or shortness of breath. Denies any fever. Denies
any GI symptoms. He denies any other complaints. He does have a history of regular alcohol use but says he has not had a drink in about 2 weeks due to financial difficulties. He is currently homeless says that he lives in a garage and is working
on placement in intermediate but he says he has access to food and drink.
Physical exam: Awake alert not in distress. Hypertensive in triage normalized by my assessment, rest of vitals normal. No cardiac rubs gallops or murmurs. Lungs clear to auscultation bilaterally. Slight pharyngeal erythema but no palatal
petechia, no vesicular lesions, no tonsillar exudate. Abdomen nontender.
Medical Decision Makin-year-old male presents with flulike illness. Symptoms consistent with viral syndrome. COVID and flu swabs were negative. Provided supportive care. Case management evaluated to provide some assistance with different
shelters.
Discharge Plan
Departure
Patient Disposition: Home (Routine Discharge)
Date of Disposition: 07/21/24
Time of Disposition: 12:49
Patient with high blood pressure during this ER visit?: Yes
Condition: Good
Covid-19: Not Applicable
Discharge Problem:
Acute viral syndrome
Instructions: Viral Upper Respiratory Infection, Adult (DC), BLOOD PRESSURE
Prescriptions:
New
guaifenesin [Mucus Relief ER] 600 mg tablet extended release 12hr
600 mg PO Q12H PRN (Reason: Congestion) Qty: 14 0RF
No Action
doxycycline hyclate 100 mg tablet
100 mg PO BID 10 Days Qty: 20 0RF
Referrals:
NONE,* [Family Provider] -
Activity Restrictions/Additional Instructions:
Return to the emergency department with any high fevers, chest pain, shortness of breath/difficulty breathing, worsening current symptoms, or any other concerns
-You should continue to take Motrin/Tylenol as needed for body aches and fever. You can take Mucinex as needed for nasal congestion. I have sent a prescription to your pharmacy.
-Stay well-hydrated. Get plenty of rest.
Monitor symptoms closely and return to the emergency department with any acute worsening/new symptoms or any other concern
Interventions
Interventions:
*Risk Screen - Suicide Last Done: 07/21/24 09:21
*General Assessment Last Done: 07/21/24 09:21
*Neglect/Abuse Screening Last Done: 07/21/24 09:21
ED- Fall Risk Assessment Last Done: 07/21/24 09:41
*ED COVID-19 Vaccine History Last Done: 07/21/24 09:52
*Nursing Disposition Last Done: 07/21/24 14:04
ED- Pulmonary Assessment Last Done: 07/21/24 09:53
Discharge Date and Time
Discharge Date/Time: 07/21/24 14:04
Print Language: CYMRAES
[2024-07-21 10:11] LABS: COVID-19 Antigen Negative (Negative)
[2024-07-21 10:16] VITALS: BP 138/92
[2024-07-21 11:00] VITALS: BP 125/104
[2024-07-21] MEDS: TORADOL 30 MG IM (11:08)
[2024-07-21] MEDS: MUCINEX 600 MG PO (11:09)
--- NOTE | 2024-07-21 11:59 | CM ---
Addendum entered by Beata Aguilar 07/21/24 13:40:
Address is [address]. Patient shared it is a [employer]. Kami FERRARO is reaching out to patient personally. She will call his cellphone number.
Addendum entered by Beata Aguilar 07/21/24 13:37:
JASMINE returned HEATHER's phone call. CM shared that patient stated that he is living at an abandoned garage. JASMINE wanted to know where it was located, what address he has on his ID and what time is his job interview tomorrow (HEATHER shared that Igor said he
had a job interview). CM shared that the garage is located near [address] [place] [address]. 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
Original Note:
CM consult placed for homelessness. Introduced self and role. Patient stated he was living on other properties, but people sold the properties or . He was at the long term in [place], said something inappopriate on his 3rd day and was kicked
out. CM left a VM to [facility], as no one answered. CM offered the [facility]. Patient declined. CM called [facility] and left a voicemail.
[2024-07-21 12:00] VITALS: BP 124/79
[2024-07-21] MEDS: MOTRIN 800 MG PO (12:23)
--- NOTE | 2024-07-21 14:35 | CM ---
Addendum entered by Beata Aguilar 07/21/24 14:43:
Kami from [facility] said patient technically has used his 3/3 days for the year. This is technically his 4th and last paid hotel night stay.
Original Note:
Lyft ride arranged for patient to go to [facility]. He was notified of the color, make and model of car and how many minutes it would be here to miner pick patient.
== END 2024-07-21 14:04 | disposition home or self-care (01) ==
LOC: EMR 09:05
PROVIDERS: EMERGENCY PHYSICIAN Emergency Medicine
DX: B34.9 Viral infection, unspecified (principal); R03.0 Elevated blood-pressure reading, without diagnosis of hypertension; Z11.52 Encounter for screening for COVID-19; Z59.01 Sheltered homelessness
CPT/HCPCS: 99284; 96372; 87502; 87811

== ENCOUNTER 2024-08-06 14:00 | Emergency (ER) | payer OTHER, SELFPAY ==
[2024-08-06 14:09] VITALS: BP 146/89
--- NOTE | 2024-08-06 15:13 | ED.GENMED ---
History of Present Illness
General
Chief Complaint: Abdominal Symptoms
Source: patient
Exam Limitations: none
Time Seen by Provider: 08/06/24 15:04
Nursing documentation reviewed up to this point in time: agreed with
History of Present Illness
History of Present Illness:
64-year-old male with past medical history of TBI, tobacco use disorder, presents emergency department today with concerns of bodyaches, fevers and chills, and abdominal pain that started last night. Patient reports that he is homeless and was at a
community thanks giving dinner last night and reports that he believed that someone got him sick at this dinner. Patient believes the pain may have started from eating too much and notes intermittent mild cramping but states that overnight the pain
is gotten a lot worse.. He states that he has persistent nausea but no vomiting. He denies any recent antibiotics. He denies any blood in his stools. He denies any syncopal episodes, chest pain, shortness of breath. He also notes generalized
fatigue. He denies any history of intra-abdominal surgeries. He denies burning with urination, flank pain, hematuria. He denies any cardiac history.
Past History
Past History
ED Past Medical History: None
ED Past Surgical History: None
Social History
Employment: Employed
Review of Systems
Review of Systems
All Other Systems: ROS reviewed and negative except as documented in HPI and ROS
Phy Exam
Physical Exam
Physical Exam:
General: Patient is well appearing and in no acute distress; non-toxic
Skin: Warm and dry, no rashes or lesions
Head: Normocephalic, atraumatic
Eyes: Sclera non-icteric. EOMs intact.
Mouth: No intraoral lesions, uvula midline, mild tonsillar hypertrophy and pharyngeal erythema noted
Cardiac: Regular rate and rhythm, no murmurs
Peripheral Vascular: No lower extremity swelling or edema
Pulm: Normal respiratory effort, no wheezes, rales, or rhonchi
Abdomen: Diffuse abdominal tenderness on exam with guarding noted, worse in epigastric region
Neuro: CN II-XII intact, no focal neurologic deficits.
Psychiatric: Appropriate mood and affect.
Course
Orders/Labs/Results
Orders:
Orders
08/06/24 15:31
IV Insert/Care/Rem.- Treatment PRN
Ketorolac [Toradol] 15 mg IV NOW STA
Ondansetron Injectable [Zofran] 4 mg IV NOW STA
08/06/24 16:02
CT Abd/pelvis W Iv Cont Urgent
Comment:
Reason For Exam: diffuse abdominal pain with guarding
08/06/24 16:34
COVID-19 Antigen Urgent
Source: Nasal Swab
Complete Blood Count/With Diff Urgent
Comprehensive Metabolic Panel Urgent
Lipase Urgent
Influenza A+B Rapid Molecular Urgent
KEVIN Source: Nasal Swab
Specimen Description:
08/06/24 18:18
Case Management Consult ONCE
Case Management Consult: Discharge Planning
Abnormal Lab Results
08/06/24
16:34
WBC 13.1 H 10^3/uL
(4.8-10.8)
MCH 32.2 H pg
(27.0-31.0)
MPV 10.9 H fL
(7.4-10.4)
Absolute Neuts (auto) 12.2 H 10^3/uL
(1.4-6.5)
Absolute Lymphs (auto) 0.6 L 10^3/uL
(1.2-3.4)
Neutrophils % 92.7 H %
(42.2-75.2)
Lymphocytes % 4.2 L %
(20.5-51.1)
BUN 21 H mg/dl
(9-20)
Glucose 101 H mg/dl
(70-99)
08/06/24 16:34
08/06/24 16:34
Vital Signs
Initial and Last Documented VS:
Initial Vital Signs
Temp Pulse Resp BP Pulse Ox
98.4 F 90 16 146/89 99
08/06/24 14:09 08/06/24 14:09 08/06/24 14:09 08/06/24 14:09 08/06/24 14:09
Last Documented Vital Signs
Temp Pulse Resp BP Pulse Ox
98.4 F 115 20 107/65 94
08/06/24 14:09 08/06/24 18:42 08/06/24 18:42 08/06/24 18:42 08/06/24 18:42
MDM/Problems Addressed
Differential Diagnosis Includes:
ddx include influenza, COVID-19, gastroenteritis
MDM/Problems Addressed:
64-year-old male presents emergency department today with bodyaches, nausea, diffuse lower abdominal pain since last night. On physical exam, he is well-appearing, he is afebrile, he does have abdominal tenderness on exam but no palpable masses.
He has a mild leukocytosis but otherwise lab work unremarkable, his lipase is normal. COVID and flu testing negative. He sent for CAT scan which shows enteritis but otherwise unremarkable findings. Zofran has been sent to patient's pharmacy.
Considering patient's history of homelessness, did speak to case with case management who saw patient and gave him resources and set him up with a ride back to his garage that he was living in. Patient states that he does have access to food and
water. Patient stable for discharge. Case reviewed with my ER attending.
Chronic conditions affecting care:
TBI, tobacco use disorder
*Pulse Oximetry
Patient hypoxic: no
*Critical Care Note
Total Time (30-74mins, 75-104mins- exclusive of procedures): Not Applicable
Data Reviewed
Review of Other/Old Records Reveals: Records (Reviewed ER physician documentation from 07/21/2024, patient seen for similar symptoms discharged with unremarkable workup.) and Discharge Summary (No discharge summaries in [facility] to review)
Source: patient and records
ED Attending Note
-
Portions of this chart may have been created with voice recognition software.� Occasional wrong word or��sound alike� substitutions may have occurred due to the inherent limitations of voice recognition software.
Discharge Plan
Departure
Patient Disposition: Home (Routine Discharge)
Date of Disposition: 08/06/24
Time of Disposition: 18:17
Patient with high blood pressure during this ER visit?: Yes
Condition: Good
Discharge Problem:
Gastroenteritis
Instructions: Viral gastroenteritis in adults, BLOOD PRESSURE
Prescriptions:
New
ondansetron HCl 4 mg tablet
4 mg PO Q6H PRN (Reason: nausea and vomiting) Qty: 8 0RF
No Action
doxycycline hyclate 100 mg tablet
100 mg PO BID 10 Days Qty: 20 0RF
guaifenesin [Mucus Relief ER] 600 mg tablet extended release 12hr
600 mg PO Q12H PRN (Reason: Congestion) Qty: 14 0RF
Referrals:
NONE,* [Family Provider] -
Activity Restrictions/Additional Instructions:
Zofran has been sent to your pharmacy. You can take 1 tablet every 6 hours as needed for nausea and vomiting.
Please return emergency department should you develop fevers or chills, intractable nausea or vomiting, persistent abdominal pain, dark tarry stools, blood in your vomit, chest pain, shortness of breath, or any other signs or symptoms worrisome to
you.
Interventions
Interventions:
*Risk Screen - Suicide Last Done: 08/06/24 14:12
*General Assessment Last Done: 08/06/24 16:29
*Neglect/Abuse Screening Last Done: 08/06/24 14:12
ED- Fall Risk Assessment Last Done: 08/06/24 16:29
*ED COVID-19 Vaccine History Last Done: 08/06/24 14:12
*Nursing Disposition Last Done: 08/06/24 18:45
WS-Nacsxk-[id number] Assessment Last Done: 08/06/24 16:29
Discharge Date and Time
Discharge Date/Time: 08/06/24 18:53
Print Language: SINHALA
[2024-08-06 16:29] VITALS: BMI 25.3
[2024-08-06 16:33] VITALS: BP 145/85
[2024-08-06] MEDS: TORADOL 15 MG IV (16:45)
[2024-08-06] MEDS: ZOFRAN 4 MG IV (16:45)
[2024-08-06 17:00] VITALS: BP 102/54
[2024-08-06 17:04] LABS: % Basophils 0.2 % (0-2); % Eosinophils 0.3 % (0-6); % Immature Granulocytes 0.2 % (0-0.5); % Lymphocytes 4.2 % (20.5-51.1); % Monocytes 2.4 % (1.7-9.3); % Neutrophils 92.7 % (42.2-75.2); Absolute Lymphocytes 0.6 10^3/uL (1.2-3.4); Absolute Monocytes 0.3 10^3/uL (0.1-0.6); Absolute Neutrophils 12.2 10^3/uL (1.4-6.5); Hematocrit 47.6 % (39.0-52.0); Hemoglobin 16.6 g/dL (13.0-18.0); Mean Corp Hgb Conc. 34.9 g/dL (33.0-37.0); Mean Corpuscular Hgb 32.2 pg (27.0-31.0); Mean Corpuscular Volume 92.4 fL (80.0-94.0); Mean Platelet Volume 10.9 fL (7.4-10.4); Nucleated Red Blood Cells % 0 % (-); Platelet Count 220 10^3/uL (130-400); Red Blood Cell Count 5.15 10^6/uL (4.70-6.10); Red Cell Dist. Width 11.7 % (11.5-14.5); White Blood Cell Count 13.1 10^3/uL (4.8-10.8)
[2024-08-06 17:17] LABS: ALT (SGPT) 18 U/L (0-50); AST (SGOT) 23 U/L (17-59); Albumin 4.7 g/dl (3.5-5.0); Alkaline Phosphatase 74 U/L (38-126); Blood Urea Nitrogen 21 mg/dl (9-20); Calcium 9.3 mg/dl (8.4-10.2); Carbon Dioxide 29 mmol/L (22-30); Chloride 103 mmol/L (98-107); Estimated Creatinine Clearance 111 ml/min; Glucose 101 mg/dl (70-99); Lipase 73 U/L (23-300); Sodium 143 mmol/L (135-145); Total Bilirubin 0.7 mg/dl (0.2-1.3); Total Protein 7.6 g/dl (6.3-8.2); eGFR > 60.00
[2024-08-06 17:27] LABS: COVID-19 Antigen Negative (Negative)
--- NOTE | 2024-08-06 18:37 | CM ---
Cm reviewed medical record. Patient is homeless and has used his 4 night at [employer]. CM will provide him assistance with ride to a 'garage' he has been staying at. CM will refer [facility] to [facility].
[2024-08-06 18:42] VITALS: BP 107/65
== END 2024-08-06 18:53 | disposition home or self-care (01) ==
LOC: EMR 14:00
PROVIDERS: Physician Assistant; EMERGENCY PHYSICIAN Emergency Medicine
DX: K52.9 Noninfective gastroenteritis and colitis, unspecified (principal); F17.200 Nicotine dependence, unspecified, uncomplicated; Z87.820 Personal history of traumatic brain injury; Z59.01 Sheltered homelessness
CPT/HCPCS: 96374; 96375; 99284; 74177; 80053; 83690; 85025; 87502; 87811; Q9967

== ENCOUNTER 2024-08-08 10:20 | Emergency (ER) | payer OTHER, SELFPAY ==
[2024-08-08 10:34] VITALS: BP 143/95
[2024-08-08 11:39] VITALS: BMI 25.3
[2024-08-08 11:58] LABS: % Basophils 0.7 % (0-2); % Eosinophils 1.1 % (0-6); % Immature Granulocytes 0.2 % (0-0.5); % Lymphocytes 35.3 % (20.5-51.1); % Monocytes 6.3 % (1.7-9.3); % Neutrophils 56.4 % (42.2-75.2); Absolute Eosinophils 0.1 10^3/uL (0-0.7); Absolute Lymphocytes 1.6 10^3/uL (1.2-3.4); Absolute Monocytes 0.3 10^3/uL (0.1-0.6); Absolute Neutrophils 2.5 10^3/uL (1.4-6.5); Hematocrit 41.8 % (39.0-52.0); Hemoglobin 14.5 g/dL (13.0-18.0); Mean Corp Hgb Conc. 34.7 g/dL (33.0-37.0); Mean Corpuscular Hgb 31.9 pg (27.0-31.0); Mean Corpuscular Volume 91.9 fL (80.0-94.0); Mean Platelet Volume 10.3 fL (7.4-10.4); Nucleated Red Blood Cells % 0 % (-); Platelet Count 186 10^3/uL (130-400); Red Blood Cell Count 4.55 10^6/uL (4.70-6.10); Red Cell Dist. Width 11.8 % (11.5-14.5); White Blood Cell Count 4.4 10^3/uL (4.8-10.8)
[2024-08-08 12:00] VITALS: BP 125/78
[2024-08-08 12:16] LABS: ALT (SGPT) 19 U/L (0-50); AST (SGOT) 22 U/L (17-59); Albumin 3.7 g/dl (3.5-5.0); Alkaline Phosphatase 45 U/L (38-126); Blood Urea Nitrogen 15 mg/dl (9-20); Calcium 8.5 mg/dl (8.4-10.2); Carbon Dioxide 27 mmol/L (22-30); Chloride 104 mmol/L (98-107); Estimated Creatinine Clearance > 125 ml/min; Glucose 104 mg/dl (70-99); Potassium 4.1 mmol/L (3.5-5.1); Sodium 140 mmol/L (135-145); Total Bilirubin 0.2 mg/dl (0.2-1.3); Total Protein 6.2 g/dl (6.3-8.2); eGFR > 60.00
--- NOTE | 2024-08-08 12:39 | ED.GENMED ---
History of Present Illness
General
Chief Complaint: Bowel Problem
Source: patient
Exam Limitations: none
Time Seen by Provider: 08/08/24 10:59
Nursing documentation reviewed up to this point in time: agreed with
History of Present Illness
History of Present Illness:
64 yo male with h/o TBI, smoker, anxiety/depression, homeless, states he's living in an abandoned garage, was here 3 days ago for body aches, fever chills, abd pain after attending [facility].
Here today because 'have the runs and not feeling good,' 'everything [diarrhea] is water since yesterday.' Non bloody diarrhea and he was incontinent of stool this a.m. Vomited x 3 here in [place]. Feels nauseous. Denies abdominal pain.
He has access to food and water.
Past History
Past History
ED Past Medical History: Other (TBI, homeless)
ED Past Surgical History: None
Social History
Tobacco: Smoker
Alcohol: None
Personal: Single
Living: homeless
Employment: Employed
Review of Systems
Review of Systems
Allergies reviewed?: Yes
All Other Systems: ROS reviewed and negative except as documented in HPI and ROS
Constitutional: Denies fever
Respiratory: Denies trouble breathing
Cardiac: Denies chest pain
ABD/GI: Reports nausea, vomiting and diarrhea; Denies abdominal pain, bloody stools, black stools or anorexia
: Denies dysuria or difficulty voiding
Musculoskeletal: Reports no symptoms
Skin: Reports no symptoms
Neurological: Reports no symptoms
Phy Exam
Physical Exam
Physical Exam:
GENERAL: No acute distress. A&Ox3. Mildly unkempt.
CONSTITUTIONAL: Afebrile.
EYES: PERRL, conjunctivae normal
ENMT: moist mucus membranes, Pharynx nl
RESPIRATORY: Regular respirations, nonlabored, lungs clear.
CARDIOVASCULAR: Regular rate and rhythm, no murmurs, no rubs.
GI: Soft, nontender, normal BS
MUSCULOSKELETAL: Moves with ease. Well perfused.
SKIN: Warm, dry, pink
PSYCH: Normal mood and affect. Well kept, interactive and appropriate
NEUROLOGIC: Awake, alert and oriented. No focal neurological deficits
Course
Orders/Labs/Results
Orders:
Orders
08/08/24 11:49
Complete Blood Count/With Diff Urgent
Comprehensive Metabolic Panel Urgent
08/08/24 12:53
Loperamide [Imodium] 2 mg PO NOW STA
Abnormal Lab Results
08/08/24
11:49
WBC 4.4 L 10^3/uL
(4.8-10.8)
RBC 4.55 L 10^6/uL
(4.70-6.10)
MCH 31.9 H pg
(27.0-31.0)
Glucose 104 H mg/dl
(70-99)
Total Protein 6.2 L g/dl
(6.3-8.2)
08/08/24 11:49
08/08/24 11:49
Vital Signs
Initial and Last Documented VS:
Initial Vital Signs
Temp Pulse Resp BP Pulse Ox
98.4 F 94 16 143/95 95
08/08/24 10:34 08/08/24 10:34 08/08/24 10:34 08/08/24 10:34 08/08/24 10:34
Last Documented Vital Signs
Temp Pulse Resp BP Pulse Ox
98.4 F 69 18 125/78 95
08/08/24 10:34 08/08/24 12:00 08/08/24 12:00 08/08/24 12:00 08/08/24 12:00
MDM/Problems Addressed
Differential Diagnosis Includes:
gastroenteritis, bowel obstruction
MDM/Problems Addressed:
64 yo male with h/o TBI, smoker, anxiety/depression, homeless, states he's living in an abandoned garage, was here 3 days ago for body aches, fever chills, abd pain after attending [facility] dinner at [facility].
Here today because 'have the runs and not feeling good,' 'everything [diarrhea] is water since yesterday.' Non bloody diarrhea and he was incontinent of stool this a.m. Vomited x 3 here in [place]. Feels nauseous. Denies abdominal pain.
He has access to food and water.
12:30 p.m.
CBC: Unremarkable
CMP: Unremarkable
Abd/pelvis CT scan 2 days ago reviewed, enteritis, no obstruction.
Abdomen benign, nondistended, pt states he is not nauseous now. Normal BS, No vomiting, do not suspect obstruction.
Last diarrheal stool was earlier this a.m. Denies blood in stools. Does not feel nauseous now,
No diarrhea since arrival.
Dose Loperamide given. He states he can get some at [facility].
Stable for discharge. States he's hungry, lunch box given and he at all.
Return instructions reviewed.
He states [employer] goes into effect tonight and he has somewhere warm to stay.
*Critical Care Note
Total Time (30-74mins, 75-104mins- exclusive of procedures): Not Applicable
ED Attending Note
-
Portions of this chart may have been created with voice recognition software.� Occasional wrong word or��sound alike� substitutions may have occurred due to the inherent limitations of voice recognition software.
Discharge Plan
Departure
Patient Disposition: Home (Routine Discharge)
Date of Disposition: 08/08/24
Time of Disposition: 13:00
Patient with high blood pressure during this ER visit?: No
Condition: Good
Discharge Problem:
Gastroenteritis, Diarrhea
Instructions: Diarrhea and Traveler's Diarrhea, Adult (DC)
Prescriptions:
No Action
doxycycline hyclate 100 mg tablet
100 mg PO BID 10 Days Qty: 20 0RF
guaifenesin [Mucus Relief ER] 600 mg tablet extended release 12hr
600 mg PO Q12H PRN (Reason: Congestion) Qty: 14 0RF
ondansetron HCl 4 mg tablet
4 mg PO Q6H PRN (Reason: nausea and vomiting) Qty: 8 0RF
Referrals:
NONE,* [Family Provider] -
Activity Restrictions/Additional Instructions:
As we discussed, your work up here today shows nothing worrisome.
Take Imodium as directed on the label if your diarrhea persists
Return here immediately for bloody diarrhea, worsening abdominal pain, fever, worsening vomiting or feeling sicker in any way
You may call the [facility] to see if you qualify and get a primary care provider.
Interventions
Interventions:
*Risk Screen - Suicide Last Done: 08/08/24 11:40
*General Assessment Last Done: 08/08/24 11:40
*Neglect/Abuse Screening Last Done: 08/08/24 11:40
ED- Fall Risk Assessment Last Done: 08/08/24 13:42
*ED COVID-19 Vaccine History Last Done: 08/08/24 11:40
*Nursing Disposition Last Done: 08/08/24 13:42
EW-Zhqgia-Ilbleuvagl Assessment Last Done: 08/08/24 11:42
Discharge Date and Time
Discharge Date/Time: 08/08/24 13:43
Print Language: MOHAWK
[2024-08-08] MEDS: IMODIUM 2 MG PO (13:12)
== END 2024-08-08 13:43 | disposition home or self-care (01) ==
LOC: EMR 10:20
PROVIDERS: Registered Nurse; EMERGENCY PHYSICIAN Student in an Organized Health Care Education/Training Program
DX: K52.9 Noninfective gastroenteritis and colitis, unspecified (principal); F17.200 Nicotine dependence, unspecified, uncomplicated; Z87.820 Personal history of traumatic brain injury
CPT/HCPCS: 99283; 80053; 85025

== ENCOUNTER → 2024-09-29 15:24 | Emergency (ER) | payer OTHER, SELFPAY ==
[2024-09-29 15:28] VITALS: BP 137/93
[2024-09-29 15:51] LABS: Hematocrit 41.6 % (39.0-52.0); Hemoglobin 14.6 g/dL (13.0-18.0); Mean Corp Hgb Conc. 35.1 g/dL (33.0-37.0); Mean Corpuscular Hgb 31.5 pg (27.0-31.0); Mean Corpuscular Volume 89.7 fL (80.0-94.0); Mean Platelet Volume 10.3 fL (7.4-10.4); Platelet Count 217 10^3/uL (130-400); Red Blood Cell Count 4.64 10^6/uL (4.70-6.10); Red Cell Dist. Width 12.5 % (11.5-14.5)
[2024-09-29 16:08] LABS: COVID-19 Antigen Negative (Negative)
[2024-09-29 16:09] LABS: ALT (SGPT) 20 U/L (0-50); AST (SGOT) 27 U/L (17-59); Albumin 4.6 g/dl (3.5-5.0); Alkaline Phosphatase 61 U/L (38-126); Blood Urea Nitrogen 20 mg/dl (9-20); Calcium 8.9 mg/dl (8.4-10.2); Carbon Dioxide 25 mmol/L (22-30); Chloride 105 mmol/L (98-107); Glucose 88 mg/dl (70-99); Potassium 4.3 mmol/L (3.5-5.1); Sodium 139 mmol/L (135-145); Total Bilirubin 0.2 mg/dl (0.2-1.3); Total Protein 7.4 g/dl (6.3-8.2); eGFR > 60.00
[2024-09-29 16:16] LABS: Troponin I < 0.012 ng/ml
== END | disposition left against medical advice (07) ==
LOC: EMR 15:24
PROVIDERS: EMERGENCY PHYSICIAN Emergency Medicine
DX: R07.89 Other chest pain (principal)
CPT/HCPCS: 71046; 80053; 84484; 85027; 87502; 87811; 93005

== ENCOUNTER 2024-09-30 11:57 | Emergency (ER) | payer OTHER, SELFPAY ==
[2024-09-30 12:08] VITALS: BP 159/97
--- NOTE | 2024-09-30 14:52 | ED.GENMED ---
History of Present Illness
General
Chief Complaint: Cold/Flu/URI Symptoms
Source: patient
Time Seen by Provider: 09/30/24 14:11
History of Present Illness
History of Present Illness:
64-year-old male presents to the emergent complaining of bodyaches, cough, sore throat and headache. Patient states symptoms have been present for the past 2 days. No known fever. Patient's been residing in a residential. He is not taking anything
for symptoms.
Past History
Past History
ED Past Medical History: Other (TBI, homeless)
ED Past Surgical History: None
Social History
Tobacco: Smoker
Alcohol: None
Personal: Single
Living: homeless
Employment: Employed
Phy Exam
Physical Exam
Physical Exam:
General: Awake, Alert, Oriented X3. No acute distress.
Vitals: unremarkable
Head: Atraumatic
Eyes: Pupils equal, EOMI
Throat: Airway intact, no exudates
Neck: Trachea midline
Lungs: Clear and equal b/l
Heart: Regular rate, no murmurs
Abd: Soft, Nontender, No pulsatile mass
Neuro: Nonfocal
Skin: Warm, dry, no rash
Extremities: pulses equal b/l, no edema
Course
Orders/Labs/Results
Orders:
Orders
09/30/24 14:50
Ibuprofen [Motrin] 600 mg PO NOW STA
09/30/24 15:10
Influenza A+B Rapid Molecular Urgent
KEVIN Source: Nasal Swab
Specimen Description:
09/30/24 16:33
Doxycycline [Vibramycin] 100 mg PO NOW STA
Vital Signs
Initial and Last Documented VS:
Initial Vital Signs
Temp Pulse Resp BP Pulse Ox
97.9 F 83 18 159/97 97
09/30/24 12:08 09/30/24 12:08 09/30/24 12:08 09/30/24 12:08 09/30/24 12:08
Last Documented Vital Signs
Temp Pulse Resp BP Pulse Ox
97.9 F 91 18 159/94 98
09/30/24 12:08 09/30/24 16:49 09/30/24 16:49 09/30/24 16:49 09/30/24 16:49
MDM/Problems Addressed
Differential Diagnosis Includes:
COVID, flu, pneumonia
MDM/Problems Addressed:
Patient has negative flu test. Vital signs normal. He is not hypoxic. Patient is homeless. Will cover with doxycycline in case he has acute bronchitis but this is likely a viral illness.
*Pulse Oximetry
Patient hypoxic: no
*Critical Care Note
Total Time (30-74mins, 75-104mins- exclusive of procedures): Not Applicable
Patient Management
Social determinants of health affecting care: Living situation and Poor outpatient follow-up
ED Attending Note
-
Portions of this chart may have been created with voice recognition software.� Occasional wrong word or��sound alike� substitutions may have occurred due to the inherent limitations of voice recognition software.
Discharge Plan
Departure
Patient Disposition: Home (Routine Discharge)
Date of Disposition: 09/30/24
Time of Disposition: 16:33
Patient with high blood pressure during this ER visit?: No
Condition: Good
Discharge Problem:
Acute bronchitis
Instructions: Acute Bronchitis, Adult (DC), BLOOD PRESSURE
Prescriptions:
New
doxycycline hyclate 100 mg capsule
100 mg PO BID 7 Days Qty: 14 0RF
No Action
doxycycline hyclate 100 mg tablet
100 mg PO BID 10 Days Qty: 20 0RF
guaifenesin [Mucus Relief ER] 600 mg tablet extended release 12hr
600 mg PO Q12H PRN (Reason: Congestion) Qty: 14 0RF
ondansetron HCl 4 mg tablet
4 mg PO Q6H PRN (Reason: nausea and vomiting) Qty: 8 0RF
Referrals:
NONE,* [Family Provider] -
Interventions
Interventions:
*Risk Screen - Suicide Last Done: 09/30/24 12:08
*General Assessment Last Done: 09/30/24 12:08
*Neglect/Abuse Screening Last Done: 09/30/24 12:08
*Nursing Disposition Last Done: 09/30/24 16:50
Discharge Date and Time
Discharge Date/Time: 09/30/24 16:52
Print Language: BENINESE
[2024-09-30] MEDS: MOTRIN 600 MG PO (15:08)
[2024-09-30] MEDS: VIBRAMYCIN 100 MG PO (16:45)
[2024-09-30 16:49] VITALS: BP 159/94
== END 2024-09-30 16:52 | disposition home or self-care (01) ==
LOC: EMR 11:57
PROVIDERS: EMERGENCY PHYSICIAN Emergency Medicine
DX: J20.9 Acute bronchitis, unspecified (principal); F17.200 Nicotine dependence, unspecified, uncomplicated; Z59.01 Sheltered homelessness
CPT/HCPCS: 99282; 87502

== ENCOUNTER 2024-10-22 14:07 | Emergency (ER) | payer OTHER, SELFPAY ==
[2024-10-22 14:12] VITALS: BP 160/102
[2024-10-22 15:02] LABS: % Basophils 0.6 % (0-2); % Immature Granulocytes 0.3 % (0-0.5); % Lymphocytes 39.5 % (20.5-51.1); % Monocytes 10.5 % (1.7-9.3); % Neutrophils 48.1 % (42.2-75.2); Absolute Lymphocytes 1.2 10^3/uL (1.2-3.4); Absolute Monocytes 0.3 10^3/uL (0.1-0.6); Absolute Neutrophils 1.5 10^3/uL (1.4-6.5); Hematocrit 45.6 % (39.0-52.0); Hemoglobin 15.1 g/dL (13.0-18.0); Mean Corp Hgb Conc. 33.1 g/dL (33.0-37.0); Mean Corpuscular Hgb 30.6 pg (27.0-31.0); Mean Corpuscular Volume 92.3 fL (80.0-94.0); Mean Platelet Volume 10.6 fL (7.4-10.4); Nucleated Red Blood Cells % 0 % (-); Platelet Count 178 10^3/uL (130-400); Red Blood Cell Count 4.94 10^6/uL (4.70-6.10); Red Cell Dist. Width 12.7 % (11.5-14.5); White Blood Cell Count 3.1 10^3/uL (4.8-10.8)
[2024-10-22 15:17] LABS: COVID-19 Antigen Negative (Negative)
[2024-10-22 15:19] LABS: ALT (SGPT) 23 U/L (0-50); AST (SGOT) 33 U/L (17-59); Albumin 4.4 g/dl (3.5-5.0); Alkaline Phosphatase 65 U/L (38-126); Blood Urea Nitrogen 16 mg/dl (9-20); Calcium 8.8 mg/dl (8.4-10.2); Carbon Dioxide 27 mmol/L (22-30); Chloride 102 mmol/L (98-107); Glucose 96 mg/dl (70-99); Potassium 4.6 mmol/L (3.5-5.1); Sodium 137 mmol/L (135-145); Total Bilirubin 0.4 mg/dl (0.2-1.3); Total Protein 7.4 g/dl (6.3-8.2); eGFR > 60.00
[2024-10-22 16:11] VITALS: BP 133/90
--- NOTE | 2024-10-22 16:14 | ED.GENMED ---
History of Present Illness
General
Chief Complaint: Weakness
Source: patient
Exam Limitations: none
Time Seen by Provider: 10/22/24 16:07
Nursing documentation reviewed up to this point in time: agreed with
History of Present Illness
History of Present Illness:
The patient is a pleasant 64-year-old man who comes in with complaints of 3 to 4 days of bodyaches, fatigue, headache, cough, nasal congestion, nausea, and diarrhea. Patient reports that he lives in a homeless assisted in [facility]. He reports he feels safe. He denies rash and severe headache. He has been able to drink and eat without difficulty. He denies any shortness of breath.
Past History
Past History
ED Past Medical History: Other (TBI, homeless)
ED Past Surgical History: Other
Social History
Tobacco: Former smoker
Alcohol: Occasional
Drug: None
Personal: Single
Living: homeless (Lives in assisted in [facility])
Employment: Other
Family History
Family History: Other
Review of Systems
Review of Systems
Allergies reviewed?: Yes
All Other Systems: ROS reviewed and negative except as documented in HPI and ROS
Constitutional: Reports fever, fatigue and chills
EENT: Reports no symptoms
Respiratory: Reports cough
Cardiac: Reports no symptoms
ABD/GI: Reports nausea, diarrhea and anorexia
: Reports no symptoms
Musculoskeletal: Reports no symptoms
Skin: Reports no symptoms
Neurological: Reports no symptoms
Endocrine: Reports no symptoms
Hematologic/Lymphatic: Reports no symptoms
Psychiatric: Reports no symptoms
Phy Exam
Physical Exam
Physical Exam:
Physical Exam
General: no apparent distress, nontoxic, flushed
Neck: supple. no meningeal signs. normal psoterior pharynx
Heart: s1/s2 regular rate and rhythm, no murmur. equal radial pulses.
Lungs: no acute respiratory distress. clear bilaterally
Abdomen: normal bowel sounds. not tender. no CVAT
Neuro: alert and oriented. no focal neurological deficits
Skin: no rash
Psychiatric: well kept. interactive and cooperative
Extremities: no edema. no calf tenderness. negative homans. good distal pulses
Course
Orders/Labs/Results
Orders:
Orders
10/22/24 14:26
COVID-19 Antigen Urgent
Source: Nasal Swab
Complete Blood Count/With Diff Urgent
Comprehensive Metabolic Panel Urgent
Influenza A+B Rapid Molecular Urgent
KEVIN Source: Nasal Swab
Specimen Description:
10/22/24 16:46
Acetaminophen [Tylenol] 1,000 mg PO NOW STA
Ibuprofen [Motrin] 600 mg PO NOW STA
Abnormal Lab Results
10/22/24
14:26
WBC 3.1 L 10^3/uL
(4.8-10.8)
MPV 10.6 H fL
(7.4-10.4)
Monocytes % 10.5 H %
(1.7-9.3)
10/22/24 14:26
10/22/24 14:26
Vital Signs
Initial and Last Documented VS:
Initial Vital Signs
Temp Pulse Resp BP Pulse Ox
99.1 F 89 18 160/102 98
10/22/24 14:12 10/22/24 14:12 10/22/24 14:12 10/22/24 14:12 10/22/24 14:12
Last Documented Vital Signs
Temp Pulse Resp BP Pulse Ox
99.1 F 89 18 133/90 94
10/22/24 14:12 10/22/24 14:12 10/22/24 14:12 10/22/24 16:11 10/22/24 16:12
MDM/Problems Addressed
Differential Diagnosis Includes:
Acute viral illness such as COVID, acute viral illness such as influenza, pneumonia, acute dehydration, acute gastroenteritis
MDM/Problems Addressed:
Patient presents with acute generalized weakness, fatigue, nausea and diarrhea
*Pulse Oximetry
Patient hypoxic: no
*EKG
Interpreted by ED Provider?: NA
*Underwear Welter Interpretation
Rate: normal
Interpretation: normal
Rhythm: sinus
*Critical Care Note
Total Time (30-74mins, 75-104mins- exclusive of procedures): Not Applicable
Data Reviewed
Source: patient
Patient Management
Social determinants of health affecting care: Living situation
Escalation/DeEscalation of care consider admission/obs:
Patient appears nontoxic and well. He is able to eat and drink without difficulty. He appears well-hydrated. Patient offered Tylenol and Motrin but is adamant that he wants to go [place] to catch a bus back to the assisted. Lungs are clear and there
is no sign of pneumonia or respiratory distress
ED Attending Note
-
Portions of this chart may have been created with voice recognition software.� Occasional wrong word or��sound alike� substitutions may have occurred due to the inherent limitations of voice recognition software.
Discharge Plan
Departure
Patient Disposition: Home (Routine Discharge)
Date of Disposition: 10/22/24
Time of Disposition: 16:41
Patient with high blood pressure during this ER visit?: Yes
Condition: Good
Covid-19: Not Applicable
Discharge Problem:
Influenza A
Instructions: Flu in adults - ED discharge instructions
Prescriptions:
No Action
doxycycline hyclate 100 mg tablet
100 mg PO BID 10 Days Qty: 20 0RF
guaifenesin [Mucus Relief ER] 600 mg tablet extended release 12hr
600 mg PO Q12H PRN (Reason: Congestion) Qty: 14 0RF
ondansetron HCl 4 mg tablet
4 mg PO Q6H PRN (Reason: nausea and vomiting) Qty: 8 0RF
doxycycline hyclate 100 mg capsule
100 mg PO BID 7 Days Qty: 14 0RF
Referrals:
Yasmin Amezquita MD [Primary Care Provider] -
Activity Restrictions/Additional Instructions:
Take 600 mg of Motrin every 6-8 hours with food for fever/body pain. In addition to the Motrin, you can also take 1000 mg of acetaminophen every 4-6 hours for fever/body pain.
Interventions
Interventions:
*Risk Screen - Suicide Last Done: 10/22/24 14:15
*General Assessment Last Done: 10/22/24 16:08
*Neglect/Abuse Screening Last Done: 10/22/24 16:08
ED- Fall Risk Assessment Last Done: 10/22/24 16:08
*ED COVID-19 Vaccine History Last Done: 10/22/24 16:08
*Nursing Disposition Last Done: 10/22/24 16:49
ED- Cardiac Assessment Last Done: 10/22/24 16:08
ED- Neurological Assessment Last Done: 10/22/24 16:08
ED- Pulmonary Assessment Last Done: 10/22/24 16:08
Discharge Date and Time
Discharge Date/Time: 10/22/24 16:49
Print Language: SWEDISH
== END 2024-10-22 16:49 | disposition home or self-care (01) ==
LOC: EMR 14:07
PROVIDERS: EMERGENCY PHYSICIAN Emergency Medicine; PRIMARYCARE PHYSICIAN Emergency Medicine
DX: J10.1 Influenza due to other identified influenza virus with other respiratory manifestations (principal); Z59.01 Sheltered homelessness; Z01.810 Encounter for preprocedural cardiovascular examination; Z87.891 Personal history of nicotine dependence
CPT/HCPCS: 99283; 80053; 85025; 87502; 87811

== ENCOUNTER 2024-12-02 09:04 | Emergency (ER) | payer OTHER, SELFPAY ==
[2024-12-02 09:06] VITALS: BP 175/104
[2024-12-02 09:25] VITALS: BMI 28.3
[2024-12-02] MEDS: MOTRIN 600 MG PO (09:37)
--- NOTE | 2024-12-02 09:47 | ED.GENMED ---
History of Present Illness
General
Chief Complaint: Musculo-Skeletal Complaint
Time Seen by Provider: 12/02/24 09:15
History of Present Illness
History of Present Illness:
64-year-old male without significant past medical history presenting for left hip pain. Notes symptoms for the past 2 weeks. Denies any known injury or trauma. Feels that the symptoms started after he was stretching. Denies fever, numbness,
tingling. Denies any weakness. He has not tried any medications for pain. Denies additional acute medical complaints
Past History
Past History
ED Past Medical History: Other (TBI, homeless)
ED Past Surgical History: Other
Social History
Tobacco: Former smoker
Alcohol: Occasional
Drug: None
Personal: Single
Living: homeless (Lives in half[place]way in [place])
Employment: Other
Family History
Family History: Other
Phy Exam
Physical Exam
Physical Exam:
General: Well-appearing, no clinical signs of dehydration, nontoxic and in no acute distress
HEENT: protecting airway
Neck: appears supple
CV: Normal heart rate
Resp: No accessory muscle use, no increased work of breathing
Abd: no distension
Extremities: No deformities, no swelling, no erythema. Mild tenderness at the left hip joint with range of motion grossly intact. Distal sensation and pulses intact
Neuro: alert, no focal neurologic deficit
: deferred
Rectal: deferred
Psych: Normal affect
Skin: Intact
Course
Orders/Labs/Results
Orders:
Orders
12/02/24 09:28
Ibuprofen [Motrin] 600 mg PO NOW STA
Hip, Left 2-3 Views [CR Hip - LT w/wo Pel 2-3 Vw*] Urgent
Comment:
Reason For Exam: pain, no trauma
Include a pelvis x-ray?: Yes
Vital Signs
Initial and Last Documented VS:
Initial Vital Signs
Temp Pulse Resp BP Pulse Ox
97.6 F 71 18 175/104 100
12/02/24 09:06 12/02/24 09:06 12/02/24 09:06 12/02/24 09:06 12/02/24 09:06
Last Documented Vital Signs
Temp Pulse Resp BP Pulse Ox
97.6 F 68 16 148/78 100
12/02/24 09:06 12/02/24 09:56 12/02/24 09:56 12/02/24 09:56 12/02/24 09:06
MDM/Problems Addressed
MDM/Problems Addressed:
64-year-old male presenting for 2 weeks of left hip pain. Vital signs are significant for high blood pressure.
On exam patient is in no acute distress, no discomfort. Benign examination of the left lower extremity. No infectious findings, no neurovascular compromise. No deformity or swelling. Suspect musculoskeletal strain versus arthritic pain.
Ibuprofen administered for pain. Will screen with x-ray imaging. Patient ambulated into the department and into his examination room without any difficulty. Likely plan for outpatient supportive therapy and PCP follow-up
*Critical Care Note
Total Time (30-74mins, 75-104mins- exclusive of procedures): Not Applicable
ED Attending Note
-
Portions of this chart may have been created with voice recognition software.� Occasional wrong word or��sound alike� substitutions may have occurred due to the inherent limitations of voice recognition software.
Discharge Plan
Departure
Patient Disposition: Home (Routine Discharge)
Date of Disposition: 12/02/24
Time of Disposition: 10:20
Patient with high blood pressure during this ER visit?: Yes
Condition: Good
Discharge Problem:
Hip pain, left
Instructions: Hip Pain ED, BLOOD PRESSURE
Prescriptions:
No Action
doxycycline hyclate 100 mg tablet
100 mg PO BID 10 Days Qty: 20 0RF
guaifenesin [Mucus Relief ER] 600 mg tablet extended release 12hr
600 mg PO Q12H PRN (Reason: Congestion) Qty: 14 0RF
ondansetron HCl 4 mg tablet
4 mg PO Q6H PRN (Reason: nausea and vomiting) Qty: 8 0RF
doxycycline hyclate 100 mg capsule
100 mg PO BID 7 Days Qty: 14 0RF
Activity Restrictions/Additional Instructions:
You were seen in the emergency department for hip pain
You were found to have normal x-rays of the hip. We suspect that you have arthritis and musculoskeletal strain. Please take Tylenol and Motrin as needed for your pain. Incidentally you were found to have high blood pressure. Please follow-up
with your primary care doctor regarding management of this.
Return to the emergency department for any worsening of your symptoms, or any development of chest pain, difficulty breathing, abdominal pain with persistent vomiting and inability to tolerate food or liquid by mouth (concern for dehydration),
weakness, headache or confusion, fever greater than 100.4, or any additional symptoms that are concerning to you.
Thank you for choosing [facility].
Interventions
Interventions:
*Risk Screen - Suicide Last Done: 12/02/24 09:06
*General Assessment Last Done: 12/02/24 09:06
*Neglect/Abuse Screening Last Done: 12/02/24 09:06
*ED- Fall Risk Assessment Last Done: 12/02/24 09:12
*ED COVID-19 Vaccine History Last Done: 12/02/24 09:06
*Nursing Disposition Last Done: 12/02/24 10:55
ED-Musculoskeletal Assessment Last Done: 12/02/24 09:25
Discharge Date and Time
Discharge Date/Time: 12/02/24 10:56
Print Language: TRINIDADIAN
[2024-12-02 09:56] VITALS: BP 148/78
== END 2024-12-02 10:56 | disposition home or self-care (01) ==
LOC: EMR 09:04
PROVIDERS: EMERGENCY PHYSICIAN Student in an Organized Health Care Education/Training Program
DX: M25.552 Pain in left hip (principal); Z87.891 Personal history of nicotine dependence; Z59.00 Homelessness unspecified
CPT/HCPCS: 99283; 73502